=== PATIENT | male | born 1995 | race Two or more races ===

== ENCOUNTER 2017-02-16 11:56 | Emergency (ER) | payer OTHER ==
[~2017-02-16] VITALS: Ht 165.1 cm; Wt 99.8 kg
[2017-02-16] MEDS ORDERED: Lidocaine 1% MPF 10mg/ml 5ml INJ ONE (12:15)
[2017-02-16] MEDS ORDERED: Bacitracin Oint UD TOPIC ONE (12:15)
[2017-02-16] MEDS ORDERED: Hydrogen Peroxide 473ml Bottle TOPIC ONE ×2 (12:30)
[2017-02-16] MEDS ORDERED: SUDAFED 12 HOU120 M1 PO (12:48)
[2017-02-16] MEDS ORDERED: AFRIN NASAL SPR30 ML NASAL (12:48)
[2017-02-16] MEDS ORDERED: IBUPROFEN600 MG ORAL (12:48)
--- NOTE | 2017-02-16 12:53 | Emergency Room Report ---
History of Present Illness General Chief Complaint: Laceration Source: Patient Present Illness HPI Patient is a 21-year-old male presenting for a laceration to the left thumb. He states that he was at work and using a knife to cut when it slipped. Pain is described as a 6/10 sharp sensation to the left thumb and does not radiate. He does admit to feeling of numbness of the thumb. Last tetanus shot within 10 years. He is also complaining of right-sided facial pressure and nasal congestion for the past month. Pain described as 5/10 dull ache, worse with bending over. He denies any fever or chills. He denies other symptoms including SOB, CP, cough, PEDRAZA, dizziness Allergies: Coded Allergies: PEANUT (Verified Allergy, Unknown, 02/16/17) Patient History Past Medical History: see triage record Pertinent Family History: none Immunizations: UTD Reviewed Nursing Documentation: PMH: Agreed, PSxH: Agreed Nursing Documentation-PMH Past Medical History: No Stated History Review of Systems All Other Systems: negative except mentioned in HPI Physical Exam Vital Signs Date Time Temp Pulse Resp B/P Pulse Ox O2 Delivery O2 Flow Rate FiO2 02/16/17 12:04 97.9 63 20 139/79 99 Room Air Sp02 EP Interpretation: reviewed, normal General Appearance: no apparent distress, alert, GCS 15, non-toxic Head: normocephalic, atraumatic Eyes: bilateral eye PERRL, bilateral eye normal inspection ENT: hearing grossly normal, normal pharynx, no angioedema, normal voice, nasal congestion, other - TTP over the R maxillary sinus Neck: full range of motion, supple/symm/no masses Respiratory: chest non-tender, lungs clear, normal breath sounds, speaking full sentences Musculoskeletal: back normal, gait/station normal, normal range of motion, tender - TTP over the distal L thumb Neurologic: alert, oriented x3, responsive, other - diffuse numbness to soft palpation of the distal L thumb Psychiatric: judgement/insight normal, memory normal, mood/affect normal, no suicidal/homicidal ideation Skin: laceration - 1cm linear laceration to the distal L thumb Lymphatic: no adenopathy Procedures Laceration/Wound Repair Laceration/Wound Repair : Consent: Verbal Wound Location: upper extremity Wound's Depth, Shape: superficial, linear Wound Length (cm): 1 Wound Explored: clean Irrigated w/ Saline (ccs): 200 Betadine Prep?: Yes Volume Anesthetic (ccs): 0 Wound Debrided: minimal Wound Repaired With: Dermabond Sterile Dressing Applied?: Yes Splint Applied?: No Sling Applied?: No Patient Tolerated: Well Complications: None Medical Decision Making PA Attestation Dr. tafoya is my supervising physician. Patient management was discussed with my supervising physician Diagnostic Impression: Primary Impression: Thumb laceration Qualified Codes: S61.022A - Laceration with foreign body of left thumb without damage to nail, initial encounter Additional Impression: Maxillary sinusitis Qualified Codes: J01.00 - Acute maxillary sinusitis, unspecified ER Course The patient is a 21 yo M presenting for L thumb laceration and facial pressure with nasal congestion Ddx considered include but not limited to fracture, tendon/ligament injury, avulsion, nerve damage Differential diagnosis include but not limited to pharyngitis, sinusitis, AOM, bronchitis, PNA PE: vitals WNL. NAD There is tenderness to palpation over the right maxillary sinus As well as nasal congestion. No cervical lymphad. There is a linear 1 cm laceration to the left distal thumb. No active bleeding. Full active range of motion. Sensation is decreased diffusely over the distal thumb. Wound is copiously irrigated with NS. Dermabond used for wound closure. Well approximated He will FU with PMD and worker's compensation. ER precautions given Last Vital Signs Date Time Temp Pulse Resp B/P Pulse Ox O2 Delivery O2 Flow Rate FiO2 02/16/17 12:04 97.9 63 20 139/79 99 Room Air Status: improved Disposition: HOME, SELF-CARE Condition: Improved Scripts Pseudoephedrine Hcl (SUDAFED 12 HOUR) 120 Mg Tablet.er 120 MG PO DAILY, #15 TAB Prov: TERZIAN,MAX P.A. 02/16/17 Oxymetazoline HCl (Afrin) 15 Ml [place] 2 SPRAYS NASAL TWICE A DAY for 7 Days, #30 SPRAY Prov: TERZIAN,MAX P.A. 02/16/17 Ibuprofen* (MOTRIN*) 600 Mg Tablet 600 MG ORAL Q8H Y for For Pain, #30 TAB 0 Refills Prov: TERZIAN,MAX P.A. 02/16/17 Patient Instructions: Laceration Care, Adult, Sinusitis, Adult Additional Instructions: I discussed my findings with the patient. All questions and concerns have been answered. Treatment and medication compliance have been addressed. I advised the patient that they need to follow up with a doctor in 3 days for wound check. Return to ED if pain remains or worsens, you notice discharge from the wound, the wound continues to bleed, you notice a fever or chills, or for any reason. Patient is advised to keep the wound clean. Patient verbalized understanding of discharge instructions. MAX DAO Feb 16, 2017 12:53
[2017-02-16 13:08] VITALS: BP 122/78
== END 2017-02-16 13:10 | disposition home or self-care (01) ==
LOC: EMR 12:38
DX: S61.022A Laceration with foreign body of left thumb without damage to nail, initial encounter (principal); J01.00 Acute maxillary sinusitis, unspecified; W26.0XXA Contact with knife, initial encounter; Y93.9 Activity, unspecified; Y92.9 Unspecified place or not applicable; Z91.010 Allergy to peanuts
CPT/HCPCS: 99284

== ENCOUNTER 2017-11-03 14:12 | Emergency (ER) | payer OTHER ==
[~2017-11-03] VITALS: Ht 167.6 cm; Wt 95.3 kg
[~2017-11-03 14:12] MED LIST: AFRIN NASAL SPR30 ML NASAL; IBUPROFEN600 MG ORAL; SUDAFED 12 HOU120 M1 PO
[2017-11-03 14:51] VITALS: BP 116/75
[2017-11-03] MEDS ORDERED: ACETAMINOPHEN-1 EAC1 ORAL (15:00)
[2017-11-03] MEDS ORDERED: AUGMENTIN 875-1 EAC1 ORAL (15:00)
[2017-11-03] MEDS ORDERED: ZYRTEC10 MG ORAL (15:00)
--- NOTE | 2017-11-03 15:09 | Emergency Room Report ---
History of Present Illness General Chief Complaint: Pain Source: Patient Present Illness HPI Patient presents with complaints of increasingly painful right-sided maxillary area He reports that he had gone to an emergency room yesterday was found to have sinusitis As the pain persisted he was unable to finish his work today and presents to the ER Pain is 6 out of 10 he feels numbness to the lower maxillary area as well Denies any neck pain or photophobia denies any chest pain Denies any headache or visual change Denies any focal deficit denies any nausea vomiting Allergies: Coded Allergies: PEANUT (Verified Allergy, Unknown, 02/16/17) Patient History Past Medical History: see triage record Pertinent Family History: none Reviewed Nursing Documentation: PMH: Agreed; PSxH: Agreed Review of Systems All Other Systems: negative except mentioned in HPI Physical Exam Vital Signs Date Time Temp Pulse Resp B/P (MAP) Pulse Ox O2 Delivery O2 Flow Rate FiO2 11/03/17 14:51 97.8 86 16 116/75 96 Room Air 97.9 Sp02 EP Interpretation: reviewed, normal General Appearance: well appearing, no apparent distress Head: normocephalic, atraumatic Eyes: bilateral eye PERRL, bilateral eye EOMI ENT: hearing grossly normal, normal pharynx, TMs + canals normal, uvula midline , other - Tender on palpation of the right maxillary sinus region Neck: full range of motion, supple, no meningismus, no bony tend Respiratory: lungs clear, normal breath sounds, no rhonchi, no respiratory distress, no retraction, no accessory muscle use Cardiovascular #1: normal peripheral pulses, regular rate, rhythm, no edema, no gallop, no JVD, no murmur Gastrointestinal: normal bowel sounds, non tender, soft, no mass, no organomegaly, non-distended, no guarding, no hernia, no pulsatile mass, no rebound Musculoskeletal: normal inspection Neurologic: oriented x3, responsive, geology scientist III-XII nml as tested, motor strength/ tone normal, sensory intact Psychiatric: mood/affect normal Skin: normal color, no rash, warm/dry, palpation normal Lymphatic: normal inspection, no adenopathy Medical Decision Making Diagnostic Impression: Primary Impression: sinusitis ER Course Patient has CT imaging from [facility] Showing severe right-sided sinusitis Given the duration and the pain level given the patient's discomfort I feel he is a candidate for antibiotic coverage Patient provided Augmentin Decongestant medication as well And requires close outpatient follow-up Last Vital Signs Date Time Temp Pulse Resp B/P (MAP) Pulse Ox O2 Delivery O2 Flow Rate FiO2 11/03/17 14:51 97.8 86 16 116/75 96 Room Air 97.9 Status: unchanged Disposition: HOME, SELF-CARE Condition: Stable Scripts Acetaminophen With Codeine (T#3) (TYLENOL #3 TAB*) Y Tab 1 TAB ORAL Q8H PRN for For Pain, #12 TAB Prov: David Roque DO 11/03/17 Cetirizine Hcl* (ZYRTEC*) 10 Mg Tablet 10 MG ORAL DAILY, #12 TAB 0 Refills Prov: David Roque DO 11/03/17 Amoxicillin/Potassium Clav 875-125* (AUGMENTIN 875-125 TABLET*) 1 Each Tablet 1 TAB ORAL TWICE A DAY, #20 TAB Prov: David Roque DO 11/03/17 Referrals: NOT CHOSEN IPA/MD,REFERRING (PCP) Departure Forms: Return to Work Return to Work in (Days): 2 Return to Work Date: November 05, 2017 Patient Instructions: Sinusitis, Adult Additional Instructions: Patient is provided with the discharge instructions notified to follow up with primary doctor in the next 2-3 days otherwise return to the er with any worsening symptoms. Please note that this report is being documented using [employer] technology. This can lead to erroneous entry secondary to incorrect interpretation by the dictating instrument. David Roque DO November 03, 2017 15:09
[2017-11-03 15:12] VITALS: BP 116/75
== END 2017-11-03 15:18 | disposition home or self-care (01) ==
LOC: EMR 14:54
DX: J32.9 Chronic sinusitis, unspecified (principal); Z91.010 Allergy to peanuts
CPT/HCPCS: 99284